=== PATIENT | male | born 1985 | race Caucasian/White ===

== ENCOUNTER 2017-06-19 16:26 | Emergency (ER) | payer OTHER ==
[~2017-06-19] VITALS: Ht 182.9 cm; Wt 115.4 kg
[~2017-06-19 16:26] MED LIST: ADVAIR 250/501 DISK IH; PREDNISONE10 M1 PO; PREDNISONE20 MG PO; VENTOLIN HFA18 GM IH; ZITHROMAX Z-PA250 MG PO; albuterol MDI
[2017-06-19 17:10] LABS: HEMOGLOBIN 17.1 G/DL (12.5-16.6); MCH 33.7 PG (29.0-34.0); MCHC 37.2 G/DL (30.0-36.0); MCV 90.7 FL (86-99); PLATELET COUNT 260 K/uL (156-360); RBC DIS.WIDTH-CV 11.4 % (11.8-14.6); RBC DIS.WIDTH-SD 37.5 % (39-53); RED BLOOD COUNT 5.07 M/uL (4.00-5.50); WHITE BLOOD COUNT 5.8 K/uL (4.1-10.2)
[2017-06-19 17:20] LABS: CHLORIDE 103 mEq/L (99-109); POTASSIUM 3.5 mEq/L (3.7-5.4); SODIUM 138 mEq/L (136-147)
[2017-06-19 17:22] LABS: GLUCOSE 118 mg/dL (70-99)
[2017-06-19 17:26] LABS: CREATININE 1.1 mg/dL (0.6-1.3); GFR ESTIMATE (CALCULATED) > 59 mL/min/ (58.99-99999)
[2017-06-19 17:27] LABS: UREA NITROGEN (BUN) 13 mg/dL (9-23)
[2017-06-19 17:34] LABS: TROP-I INTERPRETATION NEGATIVE; TROPONIN-I 0.01 ng/mL (0.0-0.30)
[2017-06-19 20:45] LABS: TROP-I INTERPRETATION NEGATIVE; TROPONIN-I 0.03 ng/mL (0.0-0.30)
[2017-06-19 21:43] VITALS: BP 134/89
== END 2017-06-19 21:46 | disposition home or self-care (01) ==
LOC: EME 16:26
PROVIDERS: Nurse Practitioner Family
DX: R00.2 Palpitations (principal); R07.89 Other chest pain; R06.02 Shortness of breath; J45.909 Unspecified asthma, uncomplicated; F17.200 Nicotine dependence, unspecified, uncomplicated
CPT/HCPCS: 71046; 80048; 84484; 85027; 93005; 99281; 99284; J1885; J2060; J7030

== ENCOUNTER 2017-12-13 23:36 | Emergency (ER) | payer OTHER ==
[~2017-12-13] VITALS: Ht 182.9 cm; Wt 113.6 kg
[2017-12-14] MEDS ORDERED: MOTRIN800 MG PO (01:53)
[2017-12-14] MEDS ORDERED: NORCO 7.5/321 TABLET PO (01:54)
[2017-12-14 02:11] VITALS: BP 136/84
[2017-12-14] MEDS ORDERED: SINGULAIR10 MG PO (16:41)
[2017-12-14] MEDS ORDERED: ALLEGRA60 MG PO (16:42)
== END 2017-12-14 02:20 | disposition home or self-care (01) ==
LOC: EME 23:36
PROC: 2W3RX1Z Immobilization of Left Lower Leg using Splint (ICD-10-PCS; principal; 2017-12-14)
DX: S82.832A Other fracture of upper and lower end of left fibula, initial encounter for closed fracture (principal); S92.211A Displaced fracture of cuboid bone of right foot, initial encounter for closed fracture; S93.601A Unspecified sprain of right foot, initial encounter; F10.129 Alcohol abuse with intoxication, unspecified; Y90.9 Presence of alcohol in blood, level not specified; W10.9XXA Fall (on) (from) unspecified stairs and steps, initial encounter; J45.909 Unspecified asthma, uncomplicated; F17.200 Nicotine dependence, unspecified, uncomplicated
CPT/HCPCS: 73610; 73630; 99281; 99284

== ENCOUNTER 2017-12-14 15:11 | Emergency (ER) | payer OTHER ==
[~2017-12-14] VITALS: Ht 182.9 cm; Wt 118.0 kg
[~2017-12-14 15:11] MED LIST changes: +MOTRIN800 MG PO; +NORCO 7.5/321 TABLET PO
[2017-12-14 16:29] LABS: HEMATOCRIT 44.4 % (38.0-50.0); MCH 33.6 PG (29.0-34.0); MCV 93.3 FL (86-99); PLATELET COUNT 229 K/uL (156-360); RBC DIS.WIDTH-CV 11.5 % (11.8-14.6); RBC DIS.WIDTH-SD 39.7 % (39-53); RED BLOOD COUNT 4.76 M/uL (4.00-5.50); WHITE BLOOD COUNT 8.4 K/uL (4.1-10.2)
[2017-12-14 16:39] LABS: CHLORIDE 106 mEq/L (99-109); POTASSIUM 4.3 mEq/L (3.7-5.4); SODIUM 140 mEq/L (136-147)
[2017-12-14 16:40] LABS: GLUCOSE 105 mg/dL (70-99)
[2017-12-14] MEDS ORDERED: SINGULAIR10 MG PO (16:41)
[2017-12-14] MEDS ORDERED: ALLEGRA60 MG PO (16:42)
[2017-12-14 16:44] LABS: GFR ESTIMATE (CALCULATED) > 59 mL/min/ (58.99-99999)
[2017-12-14 16:45] LABS: UREA NITROGEN (BUN) 10 mg/dL (9-23)
[2017-12-14 17:33] LABS: APPEARANCE CLEAR ((CLEAR)); BILIRUBIN NEGATIVE; BLOOD NEGATIVE; COLOR YELLOW ((YELLOW)); GLUCOSE (STRIP) NEGATIVE; KETONES 20; LEUKOCYTES NEGATIVE; NITRITE NEGATIVE; PROTEIN (STRIP) NEGATIVE; SPECIFIC GRAVITY 1.026 (1.000-1.030); UCUL ADDED? NO; UROBILINOGEN 0.2 MG/DL (0.2-1.0)
[2017-12-14 18:49] VITALS: BP 141/84
== END 2017-12-14 18:55 | disposition home or self-care (01) ==
LOC: EME 15:11
PROVIDERS: Physician Assistant
DX: S92.902D Unspecified fracture of left foot, subsequent encounter for fracture with routine healing (principal); R53.83 Other fatigue; R53.1 Weakness; Z91.81 History of falling; J45.909 Unspecified asthma, uncomplicated; F17.200 Nicotine dependence, unspecified, uncomplicated
CPT/HCPCS: 70450; 80048; 81003; 85027; 99281; 99285; J7030